=== PATIENT | female | born 1990 | race Caucasian/White ===

== ENCOUNTER → 2020-12-08 | Outpatient (CLI) | payer BC | LOC: RAD 07:52 | DX: R74.01 Elevation of levels of liver transaminase levels (principal) ==

== ENCOUNTER 2023-12-25 16:23 | Emergency (ER) | payer OTHER, BC ==
[2023-12-26 00:39] LABS: HEPATITIS B SURFACE ANTIBODY 296.7 (()); HEPATITIS C VIRUS ANTIBODY Negative (Nonreactiv)
== END 2023-12-25 17:35 | disposition home or self-care (01) ==
LOC: ED 16:23
PROVIDERS: Nurse Practitioner
DX: S69.90XA Unspecified injury of unspecified wrist, hand and finger(s), initial encounter (principal); W46.0XXA Contact with hypodermic needle, initial encounter